=== PATIENT | female | born 1930 | race Caucasian/White ===

== ENCOUNTER 2018-07-25 02:40 | Inpatient (IN) | payer MEDICARE, BC ==
[~2018-07-25] VITALS: Ht 154.9 cm; Wt 71.6 kg
[~2018-07-25 02:40] MED LIST: ALIS150T PO; ASCO500 PO; ATOR20 PO; B Complex #11 EACH PO; B Complex1 EAC2 PO; BENADRYL25 MG PO; CALCAVITD PO; CEFP200 PO; CEPH500 PO; CLOP75 PO; Cascara Sagrad473 ML PO; FENTANYL PUMP; FOLI400 PO; Ferrex 150 Plu1 EACH PO; Ferus150 MG PO; LEVE500 PO; LEVSOD50 PO; MELA3 PO; METO100ER PO; METO50ER PO; Melatonin5 M1 PO; NEUPRO1 EAC1 TD; NITR.4SL PO; NITR.6SL SL; Nitroglycerin1 EAC1 TD; Norco 10-325 T1 EACH PO; Norco 5-325 Ta1 EACH PO; PANT40 PO; RANO500T PO; RESTLESS LEGS; ROPI1 PO; Ranexa1000 MG; SOLI5; TEKTURNA HCT PO; TIROSINT25 MCG PO; TYLECOD3 PO; Toviaz4 MG PO; VALA500; ZOLP6.25 PO
[2018-07-25 04:09] LABS: BASOPHILS ABSOLUTE AUTO 0.09 K/mm3 (0.00-0.23); BASOPHILS PERCENT AUTO 1 % (0-2); EOSINOPHILS PERCENT AUTO 1 % (0-6); Hematocrit 38.3 % (33.0-51.0); Hemoglobin 12.5 g/dL (11.5-16.0); IMMATURE GRAN ABSOLUTE AUTO 0.07 K/mm3 (0.00-0.10); IMMATURE GRAN PERCENT AUTO 1 % (0-1); LYMPHOCYTES PERCENT AUTO 11 % (21-46); MONOCYTES ABSOLUTE AUTO 0.74 K/mm3 (0.16-1.47); MONOCYTES PERCENT AUTO 7 % (4-13); Mean Corpuscular HGB 30.9 pg (26.0-34.0); Mean Corpuscular HGB Conc 32.6 g/dL (31.5-36.5); Mean Corpuscular Volume 95 fL (80-100); NEUTROPHILS ABSOLUTE AUTO 8.95 K/mm3 (1.96-9.15); NEUTROPHILS PERCENT AUTO 80 % (41-73); Platelet Count 261 K/mm3 (150-400); RDW Coefficient Variation 12.7 % (11.7-14.2); RDW Standard Deviation 44.6 fL (35.1-46.3); Red Blood Cell Count 4.05 M/mm3 (3.80-5.20); White Blood Cell Count 11.15 K/mm3 (4.00-11.30)
[2018-07-25 04:27] LABS: Albumin, Blood 4.1 g/dL (3.4-5.0); Bilirubin, Total 1.1 mg/dL (0.1-1.0); Bun/Creatinine Ratio 23.5 (12.0-20.0); Calcium, Blood 9.8 mg/dL (8.5-10.1); Creatinine, Blood 1.02 mg/dL (0.40-1.00); Magnesium, Blood 1.8 mg/dL (1.6-2.4); Potassium, Blood 4.6 mmol/L (3.5-5.5); Total Protein, Blood 8.1 g/dL (6.4-8.2); Troponin I 0.018 ng/mL (0.000-0.040)
[2018-07-25 04:28] LABS: International Normalized Ratio 1.08; Prothrombin Time Results 11.1 Sec (9.7-11.5)
[2018-07-25 08:50] LABS: Magnesium, Blood 1.7 mg/dL (1.6-2.4)
[2018-07-25 08:52] LABS: Thyroid Stimulating Hormone 3.84 uIU/mL (0.360-4.800)
[2018-07-26 04:25] LABS: BASOPHILS ABSOLUTE AUTO 0.07 K/mm3 (0.00-0.23); BASOPHILS PERCENT AUTO 1 % (0-2); EOSINOPHILS ABSOLUTE AUTO 0.14 K/mm3 (0.00-0.68); EOSINOPHILS PERCENT AUTO 2 % (0-6); Hematocrit 31.4 % (33.0-51.0); Hemoglobin 9.9 g/dL (11.5-16.0); IMMATURE GRAN ABSOLUTE AUTO 0.04 K/mm3 (0.00-0.10); IMMATURE GRAN PERCENT AUTO 1 % (0-1); LYMPHOCYTES ABSOLUTE AUTO 1.41 K/mm3 (0.84-5.20); LYMPHOCYTES PERCENT AUTO 21 % (21-46); MONOCYTES ABSOLUTE AUTO 0.65 K/mm3 (0.16-1.47); MONOCYTES PERCENT AUTO 9 % (4-13); Mean Corpuscular HGB Conc 31.5 g/dL (31.5-36.5); Mean Corpuscular Volume 95 fL (80-100); Mean Platelet Volume 8.3 fL (9.1-12.4); NEUTROPHILS ABSOLUTE AUTO 4.58 K/mm3 (1.96-9.15); NEUTROPHILS PERCENT AUTO 67 % (41-73); Platelet Count 185 K/mm3 (150-400); RDW Standard Deviation 45.1 fL (35.1-46.3); White Blood Cell Count 6.89 K/mm3 (4.00-11.30)
[2018-07-26 04:42] LABS: Magnesium, Blood 1.8 mg/dL (1.6-2.4)
[2018-07-26 04:52] LABS: Albumin, Blood 3.1 g/dL (3.4-5.0); Bilirubin, Total 0.7 mg/dL (0.1-1.0); Calcium, Blood 8.5 mg/dL (8.5-10.1); Creatinine, Blood 1.05 mg/dL (0.40-1.00); Potassium, Blood 4.8 mmol/L (3.5-5.5)
[2018-07-26 04:55] LABS: Total Protein, Blood 6.1 g/dL (6.4-8.2)
[2018-07-26 12:37] LABS: Percent Saturation 14.8 % (15.0-50.0)
[2018-07-27 05:05] LABS: BASOPHILS ABSOLUTE AUTO 0.05 K/mm3 (0.00-0.23); BASOPHILS PERCENT AUTO 1 % (0-2); EOSINOPHILS PERCENT AUTO 2 % (0-6); Hematocrit 32.4 % (33.0-51.0); Hemoglobin 10.5 g/dL (11.5-16.0); IMMATURE GRAN ABSOLUTE AUTO 0.04 K/mm3 (0.00-0.10); IMMATURE GRAN PERCENT AUTO 1 % (0-1); LYMPHOCYTES ABSOLUTE AUTO 1.72 K/mm3 (0.84-5.20); LYMPHOCYTES PERCENT AUTO 26 % (21-46); MONOCYTES ABSOLUTE AUTO 0.64 K/mm3 (0.16-1.47); MONOCYTES PERCENT AUTO 10 % (4-13); Mean Corpuscular HGB 31.1 pg (26.0-34.0); Mean Corpuscular HGB Conc 32.4 g/dL (31.5-36.5); Mean Corpuscular Volume 96 fL (80-100); Mean Platelet Volume 8.3 fL (9.1-12.4); NEUTROPHILS ABSOLUTE AUTO 4.02 K/mm3 (1.96-9.15); NEUTROPHILS PERCENT AUTO 61 % (41-73); Platelet Count 190 K/mm3 (150-400); RDW Standard Deviation 45.8 fL (35.1-46.3); Red Blood Cell Count 3.38 M/mm3 (3.80-5.20); White Blood Cell Count 6.57 K/mm3 (4.00-11.30)
[2018-07-27 05:26] LABS: Albumin, Blood 3.3 g/dL (3.4-5.0); Anion Gap 11 mmol/L (6-16); Blood Urea Nitrogen 20 mg/dL (8-24); Bun/Creatinine Ratio 22.1 (12.0-20.0); CO2, Blood 24 mmol/L (21-32); Calcium, Blood 8.9 mg/dL (8.5-10.1); Chloride, Blood 104 mmol/L (98-108); Creatinine, Blood 0.91 mg/dL (0.40-1.00); Glomerular Filtration Rate >60 (60-); Glucose, Blood 110 mg/dL (70-99); Phosphorus, Blood 3.2 mg/dL (2.5-4.9); Potassium, Blood 4.2 mmol/L (3.5-5.5); Sodium, Blood 139 mmol/L (136-145)
[2018-07-28 05:26] LABS: BASOPHILS ABSOLUTE AUTO 0.05 K/mm3 (0.00-0.23); BASOPHILS PERCENT AUTO 1 % (0-2); EOSINOPHILS ABSOLUTE AUTO 0.15 K/mm3 (0.00-0.68); EOSINOPHILS PERCENT AUTO 2 % (0-6); Hematocrit 32.6 % (33.0-51.0); Hemoglobin 10.6 g/dL (11.5-16.0); IMMATURE GRAN ABSOLUTE AUTO 0.04 K/mm3 (0.00-0.10); IMMATURE GRAN PERCENT AUTO 1 % (0-1); LYMPHOCYTES ABSOLUTE AUTO 1.62 K/mm3 (0.84-5.20); LYMPHOCYTES PERCENT AUTO 22 % (21-46); MONOCYTES ABSOLUTE AUTO 0.74 K/mm3 (0.16-1.47); MONOCYTES PERCENT AUTO 10 % (4-13); Mean Corpuscular HGB 30.8 pg (26.0-34.0); Mean Corpuscular HGB Conc 32.5 g/dL (31.5-36.5); Mean Corpuscular Volume 95 fL (80-100); Mean Platelet Volume 8.4 fL (9.1-12.4); NEUTROPHILS ABSOLUTE AUTO 4.72 K/mm3 (1.96-9.15); NEUTROPHILS PERCENT AUTO 65 % (41-73); Platelet Count 215 K/mm3 (150-400); RDW Coefficient Variation 12.9 % (11.7-14.2); RDW Standard Deviation 44.3 fL (35.1-46.3); Red Blood Cell Count 3.44 M/mm3 (3.80-5.20); White Blood Cell Count 7.32 K/mm3 (4.00-11.30)
[2018-07-28 05:47] LABS: Albumin, Blood 3.3 g/dL (3.4-5.0); Anion Gap 9 mmol/L (6-16); Blood Urea Nitrogen 17 mg/dL (8-24); Bun/Creatinine Ratio 15.7 (12.0-20.0); CO2, Blood 25 mmol/L (21-32); Calcium, Blood 8.9 mg/dL (8.5-10.1); Chloride, Blood 104 mmol/L (98-108); Creatinine, Blood 1.08 mg/dL (0.40-1.00); Glomerular Filtration Rate 51 (60-); Glucose, Blood 111 mg/dL (70-99); Magnesium, Blood 1.8 mg/dL (1.6-2.4); Phosphorus, Blood 3.3 mg/dL (2.5-4.9); Potassium, Blood 3.8 mmol/L (3.5-5.5); Sodium, Blood 138 mmol/L (136-145)
[2018-07-29 05:19] LABS: BASOPHILS ABSOLUTE AUTO 0.05 K/mm3 (0.00-0.23); BASOPHILS PERCENT AUTO 1 % (0-2); EOSINOPHILS ABSOLUTE AUTO 0.14 K/mm3 (0.00-0.68); EOSINOPHILS PERCENT AUTO 2 % (0-6); Hemoglobin 10.7 g/dL (11.5-16.0); IMMATURE GRAN ABSOLUTE AUTO 0.06 K/mm3 (0.00-0.10); IMMATURE GRAN PERCENT AUTO 1 % (0-1); LYMPHOCYTES ABSOLUTE AUTO 1.81 K/mm3 (0.84-5.20); LYMPHOCYTES PERCENT AUTO 26 % (21-46); MONOCYTES ABSOLUTE AUTO 0.65 K/mm3 (0.16-1.47); MONOCYTES PERCENT AUTO 9 % (4-13); Mean Corpuscular HGB 30.7 pg (26.0-34.0); Mean Corpuscular HGB Conc 32.4 g/dL (31.5-36.5); Mean Corpuscular Volume 95 fL (80-100); Mean Platelet Volume 8.3 fL (9.1-12.4); NEUTROPHILS ABSOLUTE AUTO 4.39 K/mm3 (1.96-9.15); NEUTROPHILS PERCENT AUTO 62 % (41-73); Platelet Count 222 K/mm3 (150-400); RDW Coefficient Variation 12.9 % (11.7-14.2); RDW Standard Deviation 44.6 fL (35.1-46.3); Red Blood Cell Count 3.48 M/mm3 (3.80-5.20)
[2018-07-29 05:35] LABS: Albumin, Blood 3.2 g/dL (3.4-5.0); Anion Gap 9 mmol/L (6-16); Blood Urea Nitrogen 22 mg/dL (8-24); Bun/Creatinine Ratio 20.4 (12.0-20.0); CO2, Blood 26 mmol/L (21-32); Calcium, Blood 8.7 mg/dL (8.5-10.1); Chloride, Blood 103 mmol/L (98-108); Creatinine, Blood 1.08 mg/dL (0.40-1.00); Glomerular Filtration Rate 51 (60-); Glucose, Blood 106 mg/dL (70-99); Phosphorus, Blood 3.5 mg/dL (2.5-4.9); Potassium, Blood 3.8 mmol/L (3.5-5.5); Sodium, Blood 138 mmol/L (136-145)
[2018-07-29 05:46] LABS: Anion Gap 10 mmol/L (6-16); Blood Urea Nitrogen 22 mg/dL (8-24); Bun/Creatinine Ratio 20.4 (12.0-20.0); CO2, Blood 26 mmol/L (21-32); Calcium, Blood 8.7 mg/dL (8.5-10.1); Chloride, Blood 102 mmol/L (98-108); Creatinine, Blood 1.08 mg/dL (0.40-1.00); Glomerular Filtration Rate 51 (60-); Glucose, Blood 106 mg/dL (70-99); Potassium, Blood 3.8 mmol/L (3.5-5.5); Sodium, Blood 138 mmol/L (136-145)
[2018-07-29 05:53] LABS: Digoxin (Lanoxin) 1.13 ug/mL (0.80-2.00)
[2018-07-29] MEDS ORDERED: DIGOX125 MCG PO (11:14)
[2018-07-29] MEDS ORDERED: FURO20 PO (11:14)
== END 2018-07-29 13:19 | disposition home or self-care (01) | DRG 291 ==
LOC: ER 02:40 → PCU 02:41 → MEDS 07:54 → PCU 09:03 → MEDS 07-26 09:38 → ENPENDDIS 07-29 10:45 → MEDS 07-29 13:19
PROVIDERS: Emergency Medicine; Family Medicine; Internal Medicine; Internal Medicine Cardiovascular Disease
DX: I13.0 Hypertensive heart and chronic kidney disease with heart failure and stage 1 through stage 4 chronic kidney disease, or unspecified chronic kidney disease (principal); J96.01 Acute respiratory failure with hypoxia; I50.33 Acute on chronic diastolic (congestive) heart failure; I16.1 Hypertensive emergency; F05 Delirium due to known physiological condition; Z66 Do not resuscitate; I25.10 Atherosclerotic heart disease of native coronary artery without angina pectoris; Z86.73 Personal history of transient ischemic attack (TIA), and cerebral infarction without residual deficits; E78.5 Hyperlipidemia, unspecified; K21.9 Gastro-esophageal reflux disease without esophagitis; Z90.49 Acquired absence of other specified parts of digestive tract; Z96.642 Presence of left artificial hip joint; I48.91 Unspecified atrial fibrillation; G89.29 Other chronic pain; N18.3 Chronic kidney disease, stage 3 (moderate); G40.909 Epilepsy, unspecified, not intractable, without status epilepticus; E66.9 Obesity, unspecified; Z68.30 Body mass index [BMI] 30.0-30.9, adult
CPT/HCPCS: 36415; 70450; 71045; 71046; 72131; 80048; 80053; 80069; 80162; 82607; 82728; 82746; 82947; 83540; 83550; 83605; 83735; 83880; 84145; 84443; 84484; 85025; 85379; 85610; 85651; 93005; 93010; 93306; 96374; 96375; 97161; 99285-25; G8978; G8979; G8980; J1160; J1630; J1644; J1940; J2060

== ENCOUNTER 2019-02-04 20:33 | Emergency (ER) | payer MEDICARE, BC ==
[~2019-02-04] VITALS: Ht 157.5 cm; Wt 63.5 kg
[~2019-02-04 20:33] MED LIST changes: -ATOR20 PO; -B Complex #11 EACH PO; +B Complex-Foli1 EACH PO; +DIGOX125 MCG PO; +FURO20 PO; +Lipitor20 MG PO
[2019-02-04 21:03] LABS: BASOPHILS ABSOLUTE AUTO 0.05 K/mm3 (0.00-0.23); BASOPHILS PERCENT AUTO 1 % (0-2); EOSINOPHILS ABSOLUTE AUTO 0.16 K/mm3 (0.00-0.68); EOSINOPHILS PERCENT AUTO 2 % (0-6); Hematocrit 32.4 % (33.0-51.0); Hemoglobin 10.5 g/dL (11.5-16.0); IMMATURE GRAN ABSOLUTE AUTO 0.08 K/mm3 (0.00-0.10); IMMATURE GRAN PERCENT AUTO 1 % (0-1); LYMPHOCYTES ABSOLUTE AUTO 1.67 K/mm3 (0.84-5.20); LYMPHOCYTES PERCENT AUTO 22 % (21-46); MONOCYTES ABSOLUTE AUTO 0.61 K/mm3 (0.16-1.47); MONOCYTES PERCENT AUTO 8 % (4-13); Mean Corpuscular HGB 31.3 pg (26.0-34.0); Mean Corpuscular HGB Conc 32.4 g/dL (31.5-36.5); Mean Corpuscular Volume 96 fL (80-100); Mean Platelet Volume 8.4 fL (9.1-12.4); NEUTROPHILS ABSOLUTE AUTO 4.99 K/mm3 (1.96-9.15); NEUTROPHILS PERCENT AUTO 66 % (41-73); Platelet Count 202 K/mm3 (150-400); RDW Coefficient Variation 12.2 % (11.7-14.2); Red Blood Cell Count 3.36 M/mm3 (3.80-5.20); White Blood Cell Count 7.56 K/mm3 (4.00-11.30)
[2019-02-04 21:19] LABS: Alanine Aminotransfer (ALT/SGP 15 U/L (12-78); Albumin, Blood 3.9 g/dL (3.4-5.0); Albumin/Globulin Ratio 1.2 (0.8-1.8); Alk Phos 64 U/L (50-136); Anion Gap 8 mmol/L (6-16); Aspartate Aminotrans (AST/SGOT 17 U/L (12-37); Bilirubin, Total 0.7 mg/dL (0.1-1.0); Blood Urea Nitrogen 23 mg/dL (8-24); Bun/Creatinine Ratio 20.2 (12.0-20.0); CO2, Blood 29 mmol/L (21-32); Calcium, Blood 9.2 mg/dL (8.5-10.1); Chloride, Blood 101 mmol/L (98-108); Creatinine, Blood 1.14 mg/dL (0.40-1.00); Globulin, Blood 3.2 g/dL (2.2-4.0); Glomerular Filtration Rate 48 (60-); Glucose, Blood 106 mg/dL (70-99); Sodium, Blood 138 mmol/L (136-145); Total Protein, Blood 7.1 g/dL (6.4-8.2); Troponin I <0.015 ng/mL (0.000-0.040)
== END 2019-02-05 00:53 | disposition home or self-care (01) ==
LOC: ER 20:33
PROVIDERS: Emergency Medicine
DX: R07.9 Chest pain, unspecified (principal); Z88.2 Allergy status to sulfonamides; Z88.6 Allergy status to analgesic agent; Z79.899 Other long term (current) drug therapy; I10 Essential (primary) hypertension; I25.10 Atherosclerotic heart disease of native coronary artery without angina pectoris; K21.9 Gastro-esophageal reflux disease without esophagitis; E78.5 Hyperlipidemia, unspecified; E03.9 Hypothyroidism, unspecified; Z85.038 Personal history of other malignant neoplasm of large intestine
CPT/HCPCS: 36415; 71046; 80053; 83880; 84484; 85025; 93005; 93010; 99285-25

== ENCOUNTER 2019-05-21 17:11 | Observation (INO) | payer MEDICARE, BC ==
[~2019-05-21] VITALS: Ht 154.9 cm; Wt 63.5 kg
[2019-05-21 17:38] LABS: BASOPHILS ABSOLUTE AUTO 0.04 K/mm3 (0.00-0.23); BASOPHILS PERCENT AUTO 1 % (0-2); EOSINOPHILS ABSOLUTE AUTO 0.05 K/mm3 (0.00-0.68); EOSINOPHILS PERCENT AUTO 1 % (0-6); Hematocrit 23.7 % (33.0-51.0); Hemoglobin 7.5 g/dL (11.5-16.0); IMMATURE GRAN ABSOLUTE AUTO 0.03 K/mm3 (0.00-0.10); IMMATURE GRAN PERCENT AUTO 1 % (0-1); LYMPHOCYTES ABSOLUTE AUTO 0.86 K/mm3 (0.84-5.20); LYMPHOCYTES PERCENT AUTO 17 % (21-46); MONOCYTES ABSOLUTE AUTO 0.45 K/mm3 (0.16-1.47); MONOCYTES PERCENT AUTO 9 % (4-13); Mean Corpuscular HGB 31.5 pg (26.0-34.0); Mean Corpuscular HGB Conc 31.6 g/dL (31.5-36.5); Mean Corpuscular Volume 100 fL (80-100); NEUTROPHILS ABSOLUTE AUTO 3.67 K/mm3 (1.96-9.15); NEUTROPHILS PERCENT AUTO 72 % (41-73); Platelet Count 126 K/mm3 (150-400); RDW Standard Deviation 44.2 fL (35.1-46.3); Red Blood Cell Count 2.38 M/mm3 (3.80-5.20)
[2019-05-21 18:00] LABS: Albumin, Blood 2.9 g/dL (3.4-5.0); Albumin/Globulin Ratio 1.1 (0.8-1.8); Bilirubin, Total 0.5 mg/dL (0.1-1.0); Bun/Creatinine Ratio 24.6 (12.0-20.0); Calcium, Blood 7.8 mg/dL (8.5-10.1); Creatinine, Blood 0.98 mg/dL (0.40-1.00); Globulin, Blood 2.7 g/dL (2.2-4.0); Potassium, Blood 3.5 mmol/L (3.5-5.5); Total Protein, Blood 5.6 g/dL (6.4-8.2)
[2019-05-21] MEDS ORDERED: ELIQUIS5 MG PO (19:38)
[2019-05-21] MEDS ORDERED: Toviaz4 MG PO (19:38)
[2019-05-21] MEDS ORDERED: RANOLAZINE ER1000 MG PO (19:39)
[2019-05-21] MEDS ORDERED: FUROSEMIDE20 MG PO (19:40)
[2019-05-21] MEDS ORDERED: LANOXIN125 MCG PO ×2 (19:41→19:42)
[2019-05-21] MEDS ORDERED: PANT40 PO (19:42)
[2019-05-21] MEDS ORDERED: DICLOFENAC SOD100 G1 TOP (19:43)
[2019-05-21] MEDS ORDERED: NEUPRO1 EAC1 TOP (19:44)
[2019-05-21] MEDS ORDERED: NITR.4SL SL (19:46)
[2019-05-21] MEDS ORDERED: Ferus150 MG PO (20:06)
[2019-05-21] MEDS ORDERED: Cascara Sagrad473 ML PO (20:07)
[2019-05-21] MEDS ORDERED: Calcium 600-D1 EACH PO (20:10)
[2019-05-21] MEDS ORDERED: CODE30 (21:12)
[2019-05-21] MEDS ORDERED: Lopressor 50 mg50 MG (21:16)
[2019-05-21] MEDS ORDERED: NEUPRO1 EAC1 TD (21:18)
[2019-05-22 04:50] LABS: Hematocrit 33.7 % (33.0-51.0); Hemoglobin 10.8 g/dL (11.5-16.0); Mean Platelet Volume 8.5 fL (9.1-12.4); Platelet Count 170 K/mm3 (150-400); RDW Coefficient Variation 13.2 % (11.7-14.2); RDW Standard Deviation 45.5 fL (35.1-46.3); White Blood Cell Count 7.42 K/mm3 (4.00-11.30)
[2019-05-22 04:51] LABS: Mean Corpuscular Volume 94 fL (80-100)
--- NOTE | 2019-05-22 05:40 | NUR ---
Rn summary: Patient was admitted via stretcher from the ED. Pt is alert and oriented. Pt is [place]. Pt received 1 unit PRBC which she tolerated well. Pt up to BSC x1 with 2 assist. She had dk concentrated urine. Pt has rested well. Denies discomfort. Vital signs have been stable. Lungs unchanged after blood given, very faint courseness heard prior and after. No stool this shift. Still need stool for quiac. Call light in reach. Will continue to monitor.
[2019-05-22] MEDS ORDERED: ACET325 PO (16:00)
[2019-05-22] MEDS ORDERED: FOLI400 PO (16:01)
[2019-05-22] MEDS ORDERED: SENN187 PO (16:02)
--- NOTE | 2019-05-22 16:56 | NUR ---
PT DISCHARGED HOME AT 1656. DISCHARGE INSTRUCTIONS REVIEWED. IV REMOVED. PT LEFT VIA WHEEL CHAIR
== END 2019-05-22 17:05 | disposition home or self-care (01) ==
LOC: ER 17:11 → MEDS 17:12 → ENPENDDIS 05-22 15:05 → MEDS 05-22 17:05
PROVIDERS: Emergency Medicine; ADMIT Hospitalist
DX: I12.9 Hypertensive chronic kidney disease with stage 1 through stage 4 chronic kidney disease, or unspecified chronic kidney disease (principal); N18.3 Chronic kidney disease, stage 3 (moderate); D63.1 Anemia in chronic kidney disease; G92 Toxic encephalopathy; I48.91 Unspecified atrial fibrillation; Z86.69 Personal history of other diseases of the nervous system and sense organs; I25.10 Atherosclerotic heart disease of native coronary artery without angina pectoris; G40.909 Epilepsy, unspecified, not intractable, without status epilepticus; E78.5 Hyperlipidemia, unspecified; I48.20 Chronic atrial fibrillation, unspecified; K21.9 Gastro-esophageal reflux disease without esophagitis; I08.3 Combined rheumatic disorders of mitral, aortic and tricuspid valves; I27.20 Pulmonary hypertension, unspecified; E03.9 Hypothyroidism, unspecified; G89.29 Other chronic pain; Z79.01 Long term (current) use of anticoagulants; Z95.5 Presence of coronary angioplasty implant and graft; Z66 Do not resuscitate; Z96.89 Presence of other specified functional implants; Z88.6 Allergy status to analgesic agent; Z88.2 Allergy status to sulfonamides; Z79.899 Other long term (current) drug therapy; Z86.73 Personal history of transient ischemic attack (TIA), and cerebral infarction without residual deficits
CPT/HCPCS: 36415; 36430; 80053; 82272; 82728; 83540; 83550; 85025; 85027; 86850; 86900; 86901; 86923; 93005; 93010; 93306; 99285-25; G0378; J7050; P9016

== ENCOUNTER 2019-06-15 18:46 | Emergency (ER) | payer MEDICARE, BC ==
[~2019-06-15] VITALS: Ht 167.6 cm; Wt 63.5 kg
[~2019-06-15 18:46] MED LIST changes: +ACET325 PO; +CODE30; +Calcium 600-D1 EACH PO; +DICLOFENAC SOD100 G1 TOP; +ELIQUIS5 MG PO; +FUROSEMIDE20 MG PO; +LANOXIN125 MCG PO; +Lopressor 50 mg50 MG; +NEUPRO1 EAC1 TOP; +NITR.4SL SL; +RANOLAZINE ER1000 MG PO; +SENN187 PO
[2019-06-15 20:24] LABS: BASOPHILS ABSOLUTE AUTO 0.05 K/mm3 (0.00-0.23); BASOPHILS PERCENT AUTO 0 % (0-2); EOSINOPHILS ABSOLUTE AUTO 0.03 K/mm3 (0.00-0.68); EOSINOPHILS PERCENT AUTO 0 % (0-6); Hemoglobin 11.5 g/dL (11.5-16.0); IMMATURE GRAN ABSOLUTE AUTO 0.08 K/mm3 (0.00-0.10); IMMATURE GRAN PERCENT AUTO 1 % (0-1); LYMPHOCYTES ABSOLUTE AUTO 2.05 K/mm3 (0.84-5.20); LYMPHOCYTES PERCENT AUTO 16 % (21-46); MONOCYTES PERCENT AUTO 11 % (4-13); Mean Corpuscular HGB 31.3 pg (26.0-34.0); Mean Corpuscular HGB Conc 32.9 g/dL (31.5-36.5); Mean Corpuscular Volume 95 fL (80-100); Mean Platelet Volume 8.6 fL (9.1-12.4); NEUTROPHILS ABSOLUTE AUTO 9.56 K/mm3 (1.96-9.15); NEUTROPHILS PERCENT AUTO 73 % (41-73); Platelet Count 242 K/mm3 (150-400); RDW Coefficient Variation 12.2 % (11.7-14.2); RDW Standard Deviation 42.5 fL (35.1-46.3); Red Blood Cell Count 3.67 M/mm3 (3.80-5.20); White Blood Cell Count 13.17 K/mm3 (4.00-11.30)
[2019-06-15 21:55] LABS: International Normalized Ratio 1.15
[2019-06-15 22:26] LABS: Albumin, Blood 3.8 g/dL (3.4-5.0); Albumin/Globulin Ratio 1.1 (0.8-1.8); Bilirubin, Total 0.8 mg/dL (0.1-1.0); Bun/Creatinine Ratio 20.2 (12.0-20.0); Creatinine, Blood 1.14 mg/dL (0.40-1.00); Globulin, Blood 3.5 g/dL (2.2-4.0); Potassium, Blood 3.8 mmol/L (3.5-5.5); Total Protein, Blood 7.3 g/dL (6.4-8.2)
== END 2019-06-15 22:40 | disposition short-term general hospital (02) ==
LOC: ER 18:46
PROVIDERS: Emergency Medicine
DX: S06.2X0A Diffuse traumatic brain injury without loss of consciousness, initial encounter (principal); S02.2XXA Fracture of nasal bones, initial encounter for closed fracture; S06.300A Unspecified focal traumatic brain injury without loss of consciousness, initial encounter; S05.11XA Contusion of eyeball and orbital tissues, right eye, initial encounter; I25.10 Atherosclerotic heart disease of native coronary artery without angina pectoris; K21.9 Gastro-esophageal reflux disease without esophagitis; E03.9 Hypothyroidism, unspecified; E78.5 Hyperlipidemia, unspecified; Z85.038 Personal history of other malignant neoplasm of large intestine; I12.9 Hypertensive chronic kidney disease with stage 1 through stage 4 chronic kidney disease, or unspecified chronic kidney disease; N18.3 Chronic kidney disease, stage 3 (moderate); Z86.73 Personal history of transient ischemic attack (TIA), and cerebral infarction without residual deficits; Z88.2 Allergy status to sulfonamides; Z88.8 Allergy status to other drugs, medicaments and biological substances; Z79.899 Other long term (current) drug therapy; Z79.01 Long term (current) use of anticoagulants; W01.10XA Fall on same level from slipping, tripping and stumbling with subsequent striking against unspecified object, initial encounter
CPT/HCPCS: 36415; 70450; 70486; 72125; 80053; 85025; 85610; 85730; 96365; 99285-25; C9132

== ENCOUNTER 2019-07-16 13:25 | Inpatient (IN) | payer MEDICARE, BC ==
[~2019-07-16] VITALS: Ht 154.9 cm; Wt 63.5 kg
[~2019-07-16 13:25] MED LIST changes: -CODE30; +EUTHYROX25 MCG PO; -Melatonin5 M1 PO; +Poly-Iron150 MG PO; -RANOLAZINE ER1000 MG PO; +RANOLAZINE ER500 M2 PO; -TIROSINT25 MCG PO
[2019-07-16 14:03] LABS: BASOPHILS ABSOLUTE AUTO 0.07 K/mm3 (0.00-0.23); BASOPHILS PERCENT AUTO 1 % (0-2); EOSINOPHILS ABSOLUTE AUTO 0.07 K/mm3 (0.00-0.68); EOSINOPHILS PERCENT AUTO 1 % (0-6); Hematocrit 35.8 % (33.0-51.0); Hemoglobin 11.4 g/dL (11.5-16.0); IMMATURE GRAN PERCENT AUTO 1 % (0-1); LYMPHOCYTES PERCENT AUTO 12 % (21-46); MONOCYTES ABSOLUTE AUTO 0.75 K/mm3 (0.16-1.47); MONOCYTES PERCENT AUTO 8 % (4-13); Mean Corpuscular HGB 29.6 pg (26.0-34.0); Mean Corpuscular HGB Conc 31.8 g/dL (31.5-36.5); Mean Corpuscular Volume 93 fL (80-100); Mean Platelet Volume 8.1 fL (9.1-12.4); NEUTROPHILS ABSOLUTE AUTO 7.46 K/mm3 (1.96-9.15); NEUTROPHILS PERCENT AUTO 77 % (41-73); Platelet Count 409 K/mm3 (150-400); RDW Coefficient Variation 12.1 % (11.7-14.2); RDW Standard Deviation 41.4 fL (35.1-46.3); Red Blood Cell Count 3.85 M/mm3 (3.80-5.20); White Blood Cell Count 9.65 K/mm3 (4.00-11.30)
[2019-07-16 15:23] LABS: Albumin, Blood 3.4 g/dL (3.4-5.0); Albumin/Globulin Ratio 0.9 (0.8-1.8); Bilirubin, Total 0.7 mg/dL (0.1-1.0); Bun/Creatinine Ratio 16.9 (12.0-20.0); Calcium, Blood 9.3 mg/dL (8.5-10.1); Creatinine, Blood 0.95 mg/dL (0.40-1.00); Globulin, Blood 3.9 g/dL (2.2-4.0); Potassium, Blood 4.2 mmol/L (3.5-5.5); Total Protein, Blood 7.3 g/dL (6.4-8.2)
[2019-07-16 15:38] LABS: Source, Urine Catheter
[2019-07-16 15:41] LABS: Bilirubin, Urine Neg (Neg); Blood, Urine Neg (Neg); Glucose Qualitative, Urine Neg (Neg); Ketones, Urine 1+ (Neg); Leukocyte Esterase, Urine 1+ (Neg); Nitrite, Urine Neg (Neg); Protein, Urine 1+ (Neg); Urobilinogen, Urine NORM (Normal)
[2019-07-16 15:48] LABS: Appearance, Urine Clear (Clear); Color, Urine Yellow (P-Yellow)
[2019-07-16 15:50] LABS: Bacteria Mod /hpf; Mucus Light (0-Heavy); Red Blood Cells, Urine Not Seen /hpf (0-2); Squamous Epithelial Cells Rare /hpf (Few)
[2019-07-16] MEDS ORDERED: TOLTERODINE TART2 M1 PO (17:25)
[2019-07-16] MEDS ORDERED: NEUPRO1 EAC1 TOP (17:35)
[2019-07-16] MEDS ORDERED: TYLECOD3 PO (18:07)
[2019-07-16] MEDS ORDERED: Toviaz4 MG PO (18:07)
[2019-07-16] MEDS ORDERED: MAGNESIUM250 MG PO (18:09)
--- NOTE | 2019-07-16 19:40 | NUR ---
PCU ADMIT PT BROUGHT TO PCU RM 07 BY MARY FROM ER @ 1910. PT SLID OVER FROM [facility] TO PCU BED BY 4 STAFF MEMBERS. PT ABLE TO ASSIST W/ REPOSITIONING IN BED. PT ALERT, SLOW TO COMMUNICATE, ORIENTED TO SELF AND FOLLOWING DIRECTIONS. PT UNABLE TO STATE DATE/TIME. PT W/ SLIGHTLY WEAKER L HAND SUPERVISOR CALIBRATION. PT REPORTS USING WALKER FOR AMBULATION. PT REPORTS LIVING W/ DAUGHER. NO FAMILY ACCOMPANYING PT AT TIME OF ADMIT. PT CONFIRMS DNR STATUS. DNR BAND PLACED ON PT. PT INCONTINENT, WEARING ATTENDS. CARDIZEM GTT @ 5 ML/HR INFUSING PER ORDERS. MONITOR SHOWS AFIB, HR 90's. VSS. SPO2 > 92% ON RA. WILL CONTINUE TO MONITOR AND PROVIDE CARE.
--- NOTE | 2019-07-16 23:15 | NUR ---
CARDIZEM ON STANDBY CARDIZEM @ 5 ML/HR PLACED ON STANDBY @ APPROX 2300 FOR HR SUSTAINING < 100 BPM. MONITOR SHOWS AFIB/AFLUTTER, HR 60's-80's. PRE-EXISTING ORDERS FOR PO CARDIZEM IN AM. WILL CONTINUE TO MONITOR AND PROVIDE CARE.
[2019-07-17 01:13] LABS: BASOPHILS ABSOLUTE AUTO 0.06 K/mm3 (0.00-0.23); BASOPHILS PERCENT AUTO 1 % (0-2); EOSINOPHILS PERCENT AUTO 1 % (0-6); Hematocrit 30.8 % (33.0-51.0); Hemoglobin 10.1 g/dL (11.5-16.0); IMMATURE GRAN ABSOLUTE AUTO 0.12 K/mm3 (0.00-0.10); IMMATURE GRAN PERCENT AUTO 1 % (0-1); LYMPHOCYTES ABSOLUTE AUTO 1.09 K/mm3 (0.84-5.20); LYMPHOCYTES PERCENT AUTO 10 % (21-46); MONOCYTES ABSOLUTE AUTO 0.95 K/mm3 (0.16-1.47); MONOCYTES PERCENT AUTO 8 % (4-13); Mean Corpuscular HGB Conc 32.8 g/dL (31.5-36.5); Mean Corpuscular Volume 91 fL (80-100); Mean Platelet Volume 8.3 fL (9.1-12.4); NEUTROPHILS ABSOLUTE AUTO 9.01 K/mm3 (1.96-9.15); NEUTROPHILS PERCENT AUTO 80 % (41-73); Platelet Count 395 K/mm3 (150-400); RDW Coefficient Variation 12.2 % (11.7-14.2); RDW Standard Deviation 40.7 fL (35.1-46.3); Red Blood Cell Count 3.37 M/mm3 (3.80-5.20); White Blood Cell Count 11.33 K/mm3 (4.00-11.30)
[2019-07-17 01:28] LABS: Anion Gap 8 mmol/L (6-16); Blood Urea Nitrogen 15 mg/dL (8-24); Bun/Creatinine Ratio 18.5 (12.0-20.0); CO2, Blood 28 mmol/L (21-32); Calcium, Blood 9.1 mg/dL (8.5-10.1); Chloride, Blood 98 mmol/L (98-108); Creatinine, Blood 0.81 mg/dL (0.40-1.00); Glomerular Filtration Rate >60 (60-); Glucose, Blood 120 mg/dL (70-99); Potassium, Blood 4.1 mmol/L (3.5-5.5); Sodium, Blood 134 mmol/L (136-145)
--- NOTE | 2019-07-17 05:13 | NUR ---
SHIFT SUMMARY PT ALERT, ORIENTED TO SELF, PLACE, AND FOLLOWING DIRECTIONS. PT UNABLE TO STATE DATE/TIME. PT W/ SLIGHTLY WEAKER L HAND DENTAL PRACTITIONER. VSS. MONITOR SHOWS AFIB/AFLUTTER, HR 60's-80's. CARDIZEM GTT PLACED ON STANDBY @ APPROX 2300 THIS SHIFT. SPO2 > 92% ON RA. PT W/ IMPLANTED DEVICE TO ABD RLQ, REPORTED TO BE PAIN PUMP. PT SLEEPING MAJORITY OF SHIFT. NO EVENTS. WILL CONTINUE TO MONITOR AND PROVIDE CARE UNTIL REPORT OFF TO DAY SHIFT RN.
--- NOTE | 2019-07-17 12:00 | NUR ---
ASSUMED CARE APPROXIMATELY 0700; PT ALERT; VSS; PT ON RA W/ O2 SATS >93; PT ABLE TO FOLLOW DIRECTIONS FOR NEURO CHECKS; DR. CARRILLO AT BEDSIDE AND PT ANSWERED APPROPRIATELY REGARDING SELF, DATE; PRESIDENT; AND SURROUNDINGS; PT MORE ALERT DAY PROGRESSES; PT UP IN CHAIR FOR LUNCH TRAY; DAUGHTER IN ROOM CONVERSING W/ PT AND STATED SHE LOOKS MUCH IMPROVED; PT DENIES CHEST PAIN; DENIES NEEDS AT THIS TIME; CALL LIGHT IN REACH; TAB ALARM IN PLACE; WILL CONTINUE TO MONITOR CLOSELY
[2019-07-18 03:35] LABS: BASOPHILS ABSOLUTE AUTO 0.05 K/mm3 (0.00-0.23); BASOPHILS PERCENT AUTO 1 % (0-2); EOSINOPHILS ABSOLUTE AUTO 0.12 K/mm3 (0.00-0.68); EOSINOPHILS PERCENT AUTO 2 % (0-6); Hematocrit 29.7 % (33.0-51.0); Hemoglobin 9.6 g/dL (11.5-16.0); IMMATURE GRAN PERCENT AUTO 1 % (0-1); LYMPHOCYTES ABSOLUTE AUTO 1.66 K/mm3 (0.84-5.20); LYMPHOCYTES PERCENT AUTO 20 % (21-46); MONOCYTES ABSOLUTE AUTO 0.71 K/mm3 (0.16-1.47); MONOCYTES PERCENT AUTO 9 % (4-13); Mean Corpuscular HGB 29.8 pg (26.0-34.0); Mean Corpuscular HGB Conc 32.3 g/dL (31.5-36.5); Mean Corpuscular Volume 92 fL (80-100); Mean Platelet Volume 8.3 fL (9.1-12.4); NEUTROPHILS ABSOLUTE AUTO 5.58 K/mm3 (1.96-9.15); NEUTROPHILS PERCENT AUTO 68 % (41-73); Platelet Count 381 K/mm3 (150-400); RDW Coefficient Variation 12.5 % (11.7-14.2); Red Blood Cell Count 3.22 M/mm3 (3.80-5.20); White Blood Cell Count 8.22 K/mm3 (4.00-11.30)
[2019-07-18 03:54] LABS: Bun/Creatinine Ratio 18.5 (12.0-20.0); Calcium, Blood 8.6 mg/dL (8.5-10.1); Creatinine, Blood 1.08 mg/dL (0.40-1.00)
--- NOTE | 2019-07-18 06:47 | NUR ---
SHIFT SUMMARY PT CALM AND COOPERATIVE, A&O TO SELF, LOCATION, & ABLE TO READ DATE ON BOARD FOR TIME. PT STRENGTH REMARKABLY IMPROVED W/ TOLERATING AMBULATION TO BATHROOM WELL W/ 1 PERSO ASSIST W/ GB & FWW. NO L-SIDED WEAKNESS TO NOTE. VSS. MONITOR SHOWS AFIB/AFLUTTER, HR 70's-110. NS GTT INFUSING PER ORDERS. PT VOIDING X3 THIS SHIFT. WILL CONTINUE TO MONITOR AND PROVIDE CARE UNTIL REPORT OFF TO DAY SHIFT RN.
--- NOTE | 2019-07-18 10:45 | NUR ---
CALLED PT DAUGHTER WILY AND UPDATED HER ON DISCHARGE PLAN. WILY PREFERS PT TO BE SEEN MY [facility].
[2019-07-18] MEDS ORDERED: Isosorbide Mono30 MG PO (12:13)
[2019-07-18] MEDS ORDERED: Tylenol325 MG PO (12:17)
[2019-07-18] MEDS ORDERED: B COMPLEX FORM0.4 MG PO (12:20)
[2019-07-18] MEDS ORDERED: CEPH500 PO (12:22)
[2019-07-18] MEDS ORDERED: MELA3 PO (12:26)
[2019-07-18] MEDS ORDERED: DILT60ER PO (12:26)
[2019-07-18] MEDS ORDERED: POTA10T PO (12:31)
--- NOTE | 2019-07-18 13:15 | NUR ---
DISCHARGE PT'S DAUGHTER EDUCATED ON AND RECEIVED PRINTED DC INSTRUCTIONS AND VERBALIZED AN UNDERSTANDING. NEW RX FAXED TO [facility] PER REQUEST. PT DAUGHTER VERBALIZES SHE WILL AND ARRANGE F/U APPTS TOMORROW WITH PCP AND SUPERVISOR WRAPPING ROOM. IV DC'D. TELE BOX RETURNED TO PCU. PT DAUGHTER GATHERED ALL PT'S PERSONAL BELONGINGS. PT ESCORTED OUT VIA W/C. [facility] REFERRAL SENT BY TEACHER VISUALLY IMPAIRED.
== END 2019-07-18 13:20 | disposition home health service (06) | DRG 308 ==
LOC: ER 13:25 → PCU 17:09
PROVIDERS: Emergency Medicine; ADMIT Family Medicine
DX: I48.20 Chronic atrial fibrillation, unspecified (principal); G92 Toxic encephalopathy; E87.1 Hypo-osmolality and hyponatremia; N39.0 Urinary tract infection, site not specified; M62.81 Muscle weakness (generalized); R29.810 Facial weakness; F03.90 Unspecified dementia, unspecified severity, without behavioral disturbance, psychotic disturbance, mood disturbance, and anxiety; S06.5X9D Traumatic subdural hemorrhage with loss of consciousness of unspecified duration, subsequent encounter; I25.10 Atherosclerotic heart disease of native coronary artery without angina pectoris; I12.9 Hypertensive chronic kidney disease with stage 1 through stage 4 chronic kidney disease, or unspecified chronic kidney disease; N18.3 Chronic kidney disease, stage 3 (moderate); K21.9 Gastro-esophageal reflux disease without esophagitis; E03.9 Hypothyroidism, unspecified; E78.5 Hyperlipidemia, unspecified; G40.909 Epilepsy, unspecified, not intractable, without status epilepticus; D63.1 Anemia in chronic kidney disease; W19.XXXD Unspecified fall, subsequent encounter; Z66 Do not resuscitate; Z79.899 Other long term (current) drug therapy; Z79.891 Long term (current) use of opiate analgesic; Z88.8 Allergy status to other drugs, medicaments and biological substances; Z88.2 Allergy status to sulfonamides; Z85.038 Personal history of other malignant neoplasm of large intestine; Z98.61 Coronary angioplasty status; Z86.73 Personal history of transient ischemic attack (TIA), and cerebral infarction without residual deficits
CPT/HCPCS: 36415; 70450; 71045; 80048; 80053; 81001; 83735; 84484; 85025; 87086; 92523; 93005; 93010; 93971; 96365; 96367; 96376; 97161; 97530; 99285-25; J0696; J7030; P9612